=== PATIENT | female | born 1980 | race Caucasian/White ===

== ENCOUNTER 2017-04-21 15:41 | Emergency (ER) | payer OTHER ==
[2017-04-21 15:52] VITALS: TEMP 98.2; BMI 33.8
--- NOTE | 2017-04-21 17:50 | PDOC ---
History of Present Illness - General History Source: Patient Exam Limitations: No Limitations <Christel Glassapolinar - Last Filed: 04/21/17 18:12> <Jakob Bush - Last Filed: 04/22/17 00:25> - General Chief Complaint: Chest Pain Stated Complaint: CHEST PAIN Time Seen by Provider: 04/21/17 17:38 - History of Present Illness Initial Comments: 04/21/17 18:11 The patient is a 36 year old female, with no significant past medical history, who presents to the emergency department complaining of chest pain since approximately 12:30. The patient reports her chest pain is intermittent and occasionally sharp in nature. Currently, the patient reports the pain is dull and rates it a 5/10. The patient reports the pain is exacerbated with with movement of her left arm. She reports some numbness in her right arm earlier today, and numbness in her right thigh intermittently during the past month. The patient denies any associated shortness of breath, diaphoresis, palpitations , tingling, lower extremity edema or pain. She denies any abdominal pain, nausea , vomiting, diarrhea, or constipation. She denies any fever, chills, cough, or dizziness. Patient reports her last menstrual period was on 04/12/17. She denies any recent travel or sick contacts. Allergies: NKDA Past Surgical History: None reported Family History: No family history of heart disease. Social History: Non smoker. No ETOH or drug use. (Js Glass) Past History <Js Glass - Last Filed: 04/21/17 18:12> - Past Medical History Asthma: No Cancer: No Cardiac Disorders: No Diabetes: No HTN: No Seizures: No Thyroid Disease: No - Psycho/Social/Smoking Cessation Hx Suicidal Ideation: No Smoking History: Never smoked Have you smoked in the past 12 months: No Hx Alcohol Use: No Drug/Substance Use Hx: No Substance Use Type: None Hx Substance Use Treatment: No <Jakob Bush - Last Filed: 04/22/17 00:25> - Past Medical History Allergies/Adverse Reactions: Allergies Allergy/AdvReac Type Severity Reaction Status Date / Time No Known Allergies Allergy Verified 04/21/17 17:50 Home Medications: Ambulatory Orders NK [No Known Home Medication] 04/21/17 Review of Systems - Review of Systems Able to Perform ROS?: Yes <GlassJs lucas - Last Filed: 04/21/17 18:12> <Jakob Bush - Last Filed: 04/22/17 00:25> - Review of Systems Comments:: 04/21/17 18:11 CONSTITUTIONAL: No fever, no chills, no fatigue EYES: No visual changes ENT: No ear pain, no sore throat CARDIOVASCULAR: Yes: +chest pain. No diaphoresis, no palpitations RESPIRATORY: No cough, no SOB GI: No abdominal pain, no nausea, no vomiting, no constipation, no diarrhea GENITOURINARY: No dysuria, no frequency, no hematuria MUSKULOSKELETAL: No backpain, no joint pain, no myalgias SKIN: No rash NEURO: No headache (Js Glass) *Physical Exam <Js Glass - Last Filed: 04/21/17 18:12> <Jakob Bush - Last Filed: 04/22/17 00:25> - Vital Signs Last Vital Signs Temp Pulse Resp BP Pulse Ox 98.2 F 64 20 138/70 99 04/21/17 15:50 04/21/17 15:50 04/21/17 15:50 04/21/17 15:50 04/21/17 15:50 - Physical Exam Comments: 04/21/17 18:11 CONSTITUTIONAL: Well-appearing; well-nourished; in no apparent distress HEAD: Normocephalic; atraumatic EYES: PERRL; EOM intact ENMT: External appears normal; normal oropharynx NECK: Supple; non-tender; no cervical lymphadenopathy CARD: Normal S1, S2; no murmurs, rubs, or gallops RESP: Normal chest excursion with respiration; breath sounds clear and equal bilaterally; no wheezes, rhonchi, or rales ABD: Soft, non-distended; non-tender; no palpable organomegaly, no palpable hernias EXT: Normal ROM in all four extremities; non-tender to palpation; distal pulses intact SKIN: Warm, dry, no rash NEURO: No focal neurological deficiencies. (Js Glass) ED Treatment Course - LABORATORY CBC & Chemistry Diagram: 04/21/17 18:37 04/21/17 18:37 <Jakob Bush Last Filed: 04/22/17 00:25> - ADDITIONAL ORDERS Additional order review: Laboratory Results 04/21/17 04/21/17 04/21/17 22:50 18:37 18:37 INR Sodium 138 Potassium 3.9 Chloride 105 Carbon Dioxide 23 Anion Gap 10 BUN 9 Creatinine 0.5 L D Creat Clearance w eGFR > 60 Random Glucose 91 Calcium 8.6 Magnesium 2.0 Total Bilirubin 0.3 AST 37 ALT 78 Alkaline Phosphatase 109 Creatine Kinase 118 118 Troponin I < 0.02 < 0.02 Total Protein 7.7 Albumin 3.7 Urine HCG, Qual 04/21/17 04/21/17 18:37 17:49 INR 1.02 Sodium Potassium Chloride Carbon Dioxide Anion Gap BUN Creatinine Creat Clearance w eGFR Random Glucose Calcium Magnesium Total Bilirubin AST ALT Alkaline Phosphatase Creatine Kinase Troponin I Total Protein Albumin Urine HCG, Qual Negative 04/21/17 18:37 RBC 4.48 D MCV 82.6 MCHC 33.9 RDW 13.3 D MPV 8.4 Neutrophils % 61.8 Lymphocytes % 29.5 Monocytes % 6.0 Eosinophils % 1.3 Basophils % 1.4 - RADIOLOGY Radiology Studies Ordered: Category Date Time Status CHEST PA & LAT [RAD] Stat Radiology 04/21/17 18:06 Completed - Medications Given in the ED: ED Medications Discontinued Medications Generic Name Dose Route Start Last Admin Trade Name Freq PRN Reason Stop Dose Admin Ketorolac Tromethamine 30 mg 04/21/17 18:07 04/21/17 18:45 Toradol Injection - IVPUSH 04/21/17 18:08 30 mg ONCE ONE Administration Medical Decision Making <Js Glass - Last Filed: 04/21/17 18:12> <Jakob Bush - Last Filed: 04/22/17 00:25> - Medical Decision Making 04/21/17 18:12 Plan: Bloodwork, CXR. (Js Glass) 04/22/17 00:23 Patient is a well-appearing 36-year-old female who presents to the ER with atraumatic, nonpleuritic left-sided chest discomfort. In the ER, patient is awake and alert, hemodynamically stable in no distress. EKG reveals no evidence of acute ischemia, normal sinus rhythm is noted with a heart rate of 73. Chest x -ray reveals no evidence of cardiomegaly/infiltrate or effusion. Serial cardiac enzymes is within normal limit. Patient is negative for all PERC Criteria RUSTIC TERRAZZO SETTER is highly unlikely. I do not believe the patient's symptoms are cardiac in nature. She has no history of coronary artery disease, no history of familial early coronary artery disease or early cardiac . Will discharge with outpatient follow-up. (Jakob Bush) *DC/Admit/Observation/Transfer <Js Glass - Last Filed: 04/21/17 18:12> <Jakob Bush - Last Filed: 04/22/17 00:25> Diagnosis at time of Disposition: Chest pain Qualifiers: Chest pain type: unspecified Qualified Code(s): R07.9 - Chest pain, unspecified - Discharge Dispostion Disposition: HOME Condition at time of disposition: Stable - Referrals Referrals: [facility] [Provider Group] - Patient Instructions Printed Discharge Instructions: DI for Atypical Chest Pain Print Language: YI - Attestations Scribe Attestion: 04/21/17 18:11 Documentation prepared by Js Galss, acting as medical management specialist for Jakob Bush MD. (Js Glass) Physician Attestion: 04/22/17 00:22 The documentation was prepared by the scribe under my direct supervision. I have reviewed the documentation which correctly represents the findings, medical decision-making and critical action taken by me. (Jakob Bush)
[2017-04-21] MEDS ORDERED: KETOROLAC TROMETHAMINE 30 MG/1 ML VIAL IVPUSH ONE (18:07)
[2017-04-21] MEDS ORDERED: KETOROLAC TROMETHAMINE 30 MG/1 ML VIAL ONE (18:40)
[2017-04-21 18:48] LABS: BASOPHIL 1.4 % (0-2.0); EOSINOPHIL 1.3 % (0-4.5); MCHC 33.9 g/dl (32.0-36.0); MEAN CELL VOLUME 82.6 fl (80-96); MEAN PLT VOLUME 8.4 fl (7.5-11.1); NEUTROPHILS 61.8 % (42.8-82.8); PLATELET COUNT 335 K/MM3 (134-434); RDW 13.3 % (11.6-15.6); WHITE BLOOD COUNT 11.6 K/mm3 (4.0-10.0)
[2017-04-21 18:58] LABS: INR 1.02 (0.82-1.09); PROTHROMBIN TIME (PATIENT) 11.2 SEC (9.98-11.88)
[2017-04-21 19:23] LABS: ALBUMIN 3.7 g/dl (3.4-5.0); ANION GAP 10 (8-16); BILIRUBIN,TOTAL 0.3 mg/dL (0.2-1.0); CALCIUM 8.6 mg/dL (8.5-10.1); CO2 23 mmol/L (21-32); CREATININE 0.5 mg/dL (0.55-1.02); GLUCOSE,RANDOM 91 mg/dL (74-106); SGOT/AST 37 U/L (15-37); SGPT/ALT 78 U/L (12-78); TOT PROT 7.7 g/dl (6.4-8.2)
[2017-04-21 19:25] LABS: ALK PHOS 109 U/L (45-117); CPK 118 IU/L (26-192); TROPONIN I < 0.02 ng/ml (0.00-0.05)
[2017-04-21 23:39] LABS: CPK 118 IU/L (26-192); TROPONIN I < 0.02 ng/ml (0.00-0.05)
[2017-04-22 00:41] VITALS: BP 131/72; PULSE 62
--- NOTE | 2017-04-22 10:53 | EKG ---
Test Reason : Blood Pressure : / mmHG Vent. Rate : 073 BPM Atrial Rate : 073 BPM P-R Int : 146 ms QRS Dur : 088 ms QT Int : 378 ms P-R-T Axes : 039 004 042 degrees QTc Int : 416 ms NORMAL SINUS RHYTHM NORMAL ECG NO PREVIOUS ECGS AVAILABLE Confirmed by MARIA TERESA JACOBS MD ([id number]) on 04/22/2017 10:52:58 AM Referred By: Confirmed By:MARIA TERESA JACOBS MD
== END 2017-04-22 00:40 | disposition home or self-care (01) ==
LOC: JER 15:41
PROC: 3E0333Z Introduction of Anti-inflammatory into Peripheral Vein, Percutaneous Approach (ICD-10-PCS; principal; 2017-04-21)
DX: R07.9 Chest pain, unspecified (principal)
CPT/HCPCS: 36415; 71020-TC; 80053; 83735; 84484; 84703; 85025; 85610; 93005; 93010; 99284-25

== ENCOUNTER 2017-09-04 11:02 | Emergency (ER) | payer OTHER ==
[2017-09-04 11:16] VITALS: BP 164/80; PULSE 70; TEMP 98.5; BMI 34.7
[2017-09-04] MEDS ORDERED: KETOROLAC TROMETHAMINE 60 MG/2 ML VIAL IM ONE (11:45)
--- NOTE | 2017-09-04 11:50 | PDOC ---
History of Present Illness - General Chief Complaint: Back Pain Stated Complaint: BACK PAIN Time Seen by Provider: 09/04/17 11:21 - History of Present Illness Initial Comments: 09/04/17 11:43 CHIEF COMPLAINT: back pain HISTORY OF PRESENT ILLNESS: 36 yo F with no significant PMH presents to fast track with pain to lower back and R leg x 5 days. Patient reports that she has had this pain on and off for 2 years, but this episode began 5-6 days ago and got worse today. PAST MEDICAL HISTORY: Denies past medical history FAMILY HISTORY: Denies SOCIAL HISTORY: Denies tobacco, alcohol, illicit drug use. SURGICAL HISTORY: Denies ALLERGIES: No known drug allergies REVIEW OF SYSTEMS General/Constitutional: Denies fever or chills. Denies weakness, weight change. HEENT: Denies change in vision. Denies ear pain or discharge. Denies sore throat. Cardiovascular: Denies chest pain or shortness of breath. Respiratory: Denies cough, wheezing, or hemoptysis. Gastrointestinal: Denies nausea, vomiting, diarrhea or constipation. Denies rectal bleeding. Genitourinary: Denies dysuria, frequency, or change in urination. Musculoskeletal: Low back pain radiating to R leg. Skin and breasts: Denies rash or easy bruising. Neurologic: Denies headache, vertigo, loss of consciousness, or loss of sensation. PHYSICAL EXAM General Appearance: Well-appearing, appropriately dressed. No apparent distress. HEENT: EOMI, PERRLA. No conjunctival pallor. No photophobia, scleral icterus. Respiratory/Chest: Lungs CTAB. Cardiovascular: RRR. S1, S2. Vascular Pulses: Dorsalis-Pedis (R): 2+, Dorsalis-Pedis (L): 2+ Gastrointestinal/Abdominal: Normal bowel sounds. Abdomen soft, non-distended. No tenderness or rebound tenderness. No organomegaly, pulsatile mass, guarding , hernia, hepatomegaly, splenomegaly. Musculoskeletal/Extremities: Tenderness to paravertebral muscles to lumbar spine. +Straight leg test. Normal inspection. FROM of all extremities, normal capillary refill. Pelvis Stable. No CVA tenderness. No tenderness to extremities, pedal edema, swelling, erythema or deformity. Integumentary: Appropriate color, dry, warm. No cyanosis, erythema, jaundice or rash Neurologic: commercial credit head II-XII intact. Fully oriented, alert. Appropriate mood/affect. Motor strength 5/5. No appreciable EOM palsy, facial droop or sensory deficit. 09/04/17 11:45 Past History - Past Medical History Allergies/Adverse Reactions: Allergies Allergy/AdvReac Type Severity Reaction Status Date / Time No Known Allergies Allergy Verified 09/04/17 11:16 Home Medications: Ambulatory Orders Cyclobenzaprine HCl 7.5 mg PO HS PRN #7 tablet 09/04/17 Diclofenac Sodium 75 mg PO BID #14 tablet. 09/04/17 Asthma: No Cancer: No Cardiac Disorders: No COPD: No Diabetes: No HTN: No Seizures: No Thyroid Disease: No - Suicide/Smoking/Psychosocial Hx Smoking History: Never smoked Have you smoked in the past 12 months: No Hx Alcohol Use: No Drug/Substance Use Hx: No Substance Use Type: None Hx Substance Use Treatment: No *Physical Exam - Vital Signs Last Vital Signs Temp Pulse Resp BP Pulse Ox 98.5 F 70 18 164/80 99 09/04/17 11:13 09/04/17 11:13 09/04/17 11:13 09/04/17 11:13 09/04/17 11:13 ED Treatment Course - ADDITIONAL ORDERS Additional order review: Laboratory Results 09/04/17 11:30 Urine HCG, Qual Negative Medical Decision Making - Medical Decision Making 09/04/17 11:50 36 yo F with no significant PMH presents to fast track with pain to lower back and R leg x 5 days. -urine -Toradol IM cyclobenzaprine and diclofenac rx sent to pharm Advised patient to take medication as prescribed and follow up with orthopedics. Advised patient of signs and symptoms for return to ED. Patient verbalized understanding and agrees to plan. *DC/Admit/Observation/Transfer Diagnosis at time of Disposition: Back pain Qualifiers: Back pain location: low back pain Chronicity: acute Back pain laterality: right Sciatica presence: with sciatica Sciatica laterality: sciatica of right side Qualified Code(s): M54.41 - Lumbago with sciatica, right side - Discharge Dispostion Disposition: HOME Condition at time of disposition: Stable Admit: No - Prescriptions Prescriptions: Cyclobenzaprine HCl 7.5 mg PO HS PRN #7 tablet PRN Reason: Back Pain Diclofenac Sodium 75 mg PO BID #14 tablet.dr - Referrals Referrals: Ivan Petit MD [Staff Physician] - - Patient Instructions Printed Discharge Instructions: DI for Low Back Pain Additional Instructions: Please take medication as prescribed - do NOT drive, operate machinery, or drink alcohol while taking cyclobenzaprine. As discussed, if your symptoms do not improve in 5-7 days, please follow up with an orthopedics for further evaluation and a possible MRI or physical therapy. If you experience any loss of sensation to your extremities, any loss of bowel or bladder function, any swelling or increased pain to your leg, please return to the ER. Petrolia los medicamentos segn lo recetado - NO maneje, opere maquinaria o anabel alcohol mientras cj cyclobenzaprine. Lawley se discuti, si radha sntomas no mejoran en 5-7 linn, realice un seguimiento con xenia ortopedia para xenia evaluaci n adicional y xenia posible MRI o terapia fsica. Si experimenta prdida de sensibilidad en las extremidades, prdida del funcionamiento del intestino o de la vejiga, hinchazn o aumento del dolor en la pierna, vuelva a la melissa de emergencias. Print Language: [place] - Post Discharge Activity
[2017-09-04] MEDS ORDERED: KETOROLAC TROMETHAMINE 60 MG/2 ML VIAL ONE (11:59)
== END 2017-09-04 12:07 | disposition home or self-care (01) ==
LOC: JERFT 11:02
PROC: 3E0233Z Introduction of Anti-inflammatory into Muscle, Percutaneous Approach (ICD-10-PCS; principal; 2017-09-04)
DX: M54.41 Lumbago with sciatica, right side (principal)
CPT/HCPCS: 84703; 96372; 99281-25

== ENCOUNTER 2018-07-15 03:44 | Emergency (ER) | payer OTHER ==
[2018-07-15 03:47] VITALS: BMI 34.7
[2018-07-15] MEDS ORDERED: SODIUM CHLORIDE 1,000 ML IV STA (03:50)
--- NOTE | 2018-07-15 04:01 | PDOC ---
History of Present Illness - General Chief Complaint: Pain, Acute Stated Complaint: ABD PAIN Time Seen by Provider: 07/15/18 03:47 History Source: Patient, Family, Ethnology Professor Used Exam Limitations: Language Barrier - History of Present Illness Initial Comments: 07/15/18 03:57 Pt is a 37yo f with no significant PMH presenting to ED with complaints of hematuria, lower abdominal pain 10/10 that started last night. Pt says she has been having dysuria, frequency and pain radiating to the flanks when she urinates. She had a UTI 5 months ago with pain in her abdomen but did not have hematuria and pt says pain is worse today. She denies fevers, chills, n/v/d, headache, numbness, tingling. LMP was one month ago. She says there is blood on the tissue when she wipes. No vaginal bleeding, no blood in stools. Last BM yesterday morning. PMD: [address] PMH: none PSH: Meds: none Social: denies Allergies: nkda Past History - Past Medical History Allergies/Adverse Reactions: Allergies Allergy/AdvReac Type Severity Reaction Status Date / Time No Known Allergies Allergy Verified 07/15/18 03:46 Home Medications: Ambulatory Orders Cyclobenzaprine HCl 7.5 mg PO HS PRN #7 tablet 09/04/17 Diclofenac Sodium 75 mg PO BID #14 tablet. 09/04/17 Cephalexin Monohydrate [Keflex -] 500 mg PO Q8H #42 capsule 07/15/18 Asthma: No Cancer: No Cardiac Disorders: No COPD: No Diabetes: No HTN: No Seizures: No Thyroid Disease: No - Suicide/Smoking/Psychosocial Hx Smoking History: Never smoked Have you smoked in the past 12 months: No Information on smoking cessation initiated: No Hx Alcohol Use: No Drug/Substance Use Hx: No Substance Use Type: None Hx Substance Use Treatment: No Review of Systems - Review of Systems Constitutional: No: Chills, Fever HEENTM: No: Symptoms Reported Respiratory: No: Cough, Shortness of Breath Cardiac (ROS): No: Chest Pain, Lightheadedness, Palpitations ABD/GI: Yes: See HPI, Constipated, Abdominal cramping (lower abdominal pain). No: Diarrhea, Nausea, Vomiting : Yes: Dysuria, Frequency, Flank Pain (with urination), Hematuria, Urgency. No: Discharge, Incontinence Musculoskeletal: No: Back Pain, Joint Pain, Muscle Weakness Integumentary: No: Symptoms Reported Neurological: No: Headache, Numbness, Tingling *Physical Exam - Vital Signs Last Vital Signs Temp Pulse Resp BP Pulse Ox 98.5 F 75 18 129/63 98 07/15/18 03:46 07/15/18 03:46 07/15/18 03:46 07/15/18 03:46 07/15/18 03:46 - Physical Exam General Appearance: Yes: Nourished, Appropriately Dressed, Moderate Distress HEENT: positive: EOMI, CASEY. negative: Pale Conjunctivae, Scleral Icterus (R), Scleral Icterus (L), Pharyngeal Erythema Neck: positive: Trachea midline, Supple. negative: Lymphadenopathy (R), Lymphadenopathy (L) Respiratory/Chest: positive: Lungs Clear, Normal Breath Sounds. negative: Crackles, Rales, Rhonchi, Stridor Cardiovascular: positive: Regular Rhythm, Regular Rate, S1, S2. negative: Edema , JVD, Murmur Vascular Pulses: Carotid (R): 2+, Carotid (L): 2+, Dorsalis-Pedis (R): 2+, Doralis-Pedis (L): 2+ Gastrointestinal/Abdominal: positive: Normal Bowel Sounds, Soft, Tenderness ( lower abdomninal tenderness). negative: Protuberent, Distended, Guarding, Rebound, Hernia, Mass Musculoskeletal: negative: CVA Tenderness (R), CVA Tenderness (L) Extremity: positive: Normal Capillary Refill, Pelvis Stable. 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 pain in flank with urination Vitals: wnl. No fever, normotensive, not tachycardic. PE: Ddx includes but not limited to: pyelonephritis, nephrolithiasis, hemorrhagic cystitis, fistula, urosepsis, malignancy, rhabdo low suspicion for urosepsis given pt having normal vital signs and no fever. UA, Ucx, upreg, cbc, cmp ordered. Pt given Toradol and iv fluids. -pt reported pain going from 10/10 to 5/10 after toradol. Pt presenting with painful hematuria. bedside ultrasound did not show evidence of hydronephrosis bladder wall seemed thickened. Pt reports bilateral flank pain with urination which lowers suspicion for nephrolithiasis however still a possibility. Will order spiral CT to check for perinephric stranding, stones and other abdominal pathology or bladder pathology. 07/15/18 04:53 Pertinent labs: Laboratory Tests 07/15/18 07/15/18 04:32 04:32 WBC 15.2 H Hgb 13.0 Hct 39.1 Plt Count 363 Absolute Neuts (auto) 10.0 H Urine Color Red Urine Protein 2+ H Urine Blood 3+ H Ur Leukocyte Esterase 2+ H 07/15/18 04:57 negative upreg. Will send pt to CT. 07/15/18 05:23 other than slightly elevated LFT, cmp wnl. Laboratory Tests 07/15/18 04:32 AST 82 H ALT 142 H 07/15/18 05:42 Laboratory Tests 07/15/18 04:32 Urine WBC (Auto) 938 Urine RBC (Auto) 291 Urine Bacteria 1+ Pt has wbc with 1+ bacteria. Will start patient on ceftriaxone here in ED. Pt may have hemorrhagic cystitis with early pyelo. Pt is otherwise tolerating PO, afebrile, normotensive, no signs of systemic infection. Will be likely dc home with keflex TID x 14d. Dependent on CT reading. 07/15/18 05:55 CT: No nephrolithiasis, ureterolithiasis or obstructive uropathy. No bladder calculi. Unremarkable pancreas and gallbladder. Hepatomegaly and steatosis. No bowel obstruction, colitis, diverticulitis or free air. Normal appendix. Small umbilical hernia containing fat. IUD in uterus. Trace physiologic free fluid cul-de-sac Pt reports improvement of pain, will get abx here and be treated for today, and will receive abx at pharmacy. rx sent electronically. abx can be tailored based on sensitivities by ucx. Pt agrees to plan. Will follow up at [address] [place] [address]. Given strict return precautions. *DC/Admit/Observation/Transfer Diagnosis at time of Disposition: Hemorrhagic cystitis - Discharge Dispostion Disposition: HOME Condition at time of disposition: Good Decision to Admit order: No - Prescriptions Prescriptions: Cephalexin Monohydrate [Keflex -] 500 mg PO Q8H #42 capsule - Referrals - Patient Instructions Printed Discharge Instructions: DI for Hemorrhagic Cystitis Additional Instructions: Fue consultado hoy aqu para evaluar la presencia de radha en la orina ( hematuria) y dolor. El examen de orina muestra que usted tiene xenia infeccin en la orina. La tomografa computarizada no muestra clculos o signos de infeccin renal en eric momento. Tiene cistitis hemorrgica, xenia infeccin de la vejiga. Le taylor recetado un antibitico llamado Keflex (cefalexina) para que lo tome amaris veces al da cameron 14 linn. Por favor recoja esto en queen farmacia y tome los medicamentos devorah se indica a partir de maana. No tome eric medicamento si desarrolla xenia erupcin o inflamacin en la radha. Por favor jacki xenia iker con queen mdico para xenia mayor evaluacin y manejo de radha sntomas. Puede kem ibuprofeno o Tylenol para el dolor segn sea necesario. Regrese a la melissa de emergencias si el dolor empeora, todava tiene dolor al orinar, todava tiene radha en la orina despus de unos linn, tiene fiebre, empeora el dolor de espalda, si tiene vmitos o si hay algn sntoma nuevo relacionado con l. se desarrolla Ronnie You were seen here today for evaluation of blood in the urine (hematuria) and pain. The urine test shows that you have an infection in the urine. CT scan does not show any stones or signs of kidney infection at this time. You have hemorrhagic cystitis, an infection of the bladder. You have been prescribed an antibiotic called Keflex (cephalexin) for you to take three times a day for 14 days. Please pick this up at your pharmacy and take the medication as directed starting tomorrow. Do not take this medicine if you develop a rash or swelling in the face. Please make an appointment with your doctor for further evaluation and management of your symptoms. You can take ibuprofen or Tylenol for pain as needed. Come back to the emergency room if pain gets worse, you still have pain with urination, you still have blood in the urine after a few days, you develop fever , you have worsening back pain, if you have vomiting or if any new concerning symptom develops. Thank you Print Language: [place]ICAN CITIZEN - Post Discharge Activity
[2018-07-15] MEDS ORDERED: KETOROLAC TROMETHAMINE 30 MG/1 ML VIAL IM ONE (04:07)
[2018-07-15] MEDS ORDERED: KETOROLAC TROMETHAMINE 30 MG/1 ML VIAL ONE (04:14)
--- NOTE | 2018-07-15 04:17 | PDOC ---
Attending Attestation - Resident Resident Name: Sa Leahira - ED Attending Attestation I have performed the following: I have examined & evaluated the patient, The case was reviewed & discussed with the resident, I agree w/resident's findings & plan - HPI HPI: 07/15/18 04:54 Bain 37 YOF with no medical history presenting with lower AP and hematuria tonight, radiating to flanks. Feels similar to prior UTI. associated with dysuria. LMP 1 month ago. No f/c, vomiting/diarrhea, cp or sob. No vb. 07/15/18 04:55 - Physicial Exam PE: 07/15/18 04:54 NAD, well appearing, PERRL, EOMI, MMM, nl conjunctiva, anicteric; neck supple. lungs clear, RRR, abdomen soft bilateral lower quad tenderness, no peritoneal signs. No flank tenderness or CVAT. BRISENO x4, no focal neuro deficits. No peripheral edema. normal color for ethnicity, WWP. - Medical Decision Making 07/15/18 04:56 DDx. hemorrhagic cystitis, pyelonephritis, renal colic, obstructed ureterolithiasis. Intra abdominal infection. electrolyte/metabolic derangements , PATRICK. Vital signs reviewed, wnl. no fever, nontoxic appearing Prior notes reviewed, including admissions, discharges and consultations. laboratory results and imaging reviewed, basic labs and lytes wnl, notable for + leukocytosis of 15K. UA_leuk esterase and copious WBC/RBCs. ED course; analgesia with toradol, down to 5/10. IVF, antiemetics. bedside renal sono with no hydronephrosis bilaterally, no pelvic FF. will do CT talha to eval for alternative intra abdominal precipitant for infection, no e/o hydro so less likely large obstructing stone. also looking for alternative etiology such as early pyelo and hemorrhagic cystitis. CT neg for hydro/stones, no abdominal pathology, unremarkable study, normal appx treat as hemorrhagic cystitis, possible early pyelo w/o significant sx or systemic findings. IV ceftriaxone, PO keflex xx 2 week course. f/u urine cultures. Dispo: I discussed the physical exam findings, ancillary test results and final diagnoses with the patient. I answered all of the patient's questions. The patient was satisfied with the care received and felt comfortable with the discharge plan and treatment plan. The patient will return to the Emergency Department with any new, persistent or worsening symptoms. 07/15/18 06:03
[2018-07-15 04:44] LABS: BASO % 1.2 % (0-2.0); EOS % 1.2 % (0-4.5); HEMATOCRIT 39.1 % (32.4-45.2); LYMPH % 26.7 % (8-40); MCH 27.7 pg (25.7-33.7); MCHC 33.2 g/dl (32.0-36.0); MEAN CELL VOLUME 83.5 fl (80-96); MEAN PLT VOLUME 9.1 fl (7.5-11.1); MONO % 4.9 % (3.8-10.2); PLATELET COUNT 363 K/MM3 (134-434); RBC 4.68 M/mm3 (3.60-5.2); RDW 13.3 % (11.6-15.6); WHITE BLOOD COUNT 15.2 K/mm3 (4.0-10.0)
[2018-07-15 04:45] LABS: URINE APPEARANCE SLCLOUDY; URINE BILIRUBIN NEGATIVE (<2.0 mg/dL); URINE COLOR RED; URINE GLUCOSE (UA) NEGATIVE (NEGATIVE); URINE KETONE NEGATIVE (NEGATIVE); URINE LEUK ESTERASE 2+ (NEGATIVE); URINE NITRITE NEGATIVE (NEGATIVE); URINE PROTEIN 2+ (NEGATIVE); URINE UROBILINOGEN NEGATIVE mg/dL (0.2-1.0)
[2018-07-15 05:12] LABS: ALBUMIN 3.8 g/dl (3.4-5.0); ALK PHOS 116 U/L (45-117); ANION GAP 10 MMOL/L (8-16); BILIRUBIN,TOTAL 0.4 mg/dL (0.2-1); BLOOD UREA NITROGEN 14 mg/dL (7-18); CALCIUM 8.8 mg/dL (8.5-10.1); CHLORIDE 105 mmol/L (98-107); CO2 23 mmol/L (21-32); CREATININE 0.7 mg/dL (0.55-1.3); GLUCOSE,RANDOM 93 mg/dL (74-106); POTASSIUM 4.4 mmol/L (3.5-5.1); SGOT/AST 82 U/L (15-37); SGPT/ALT 142 U/L (13-61); SODIUM 138 mmol/L (136-145); TOT PROT 8.1 g/dl (6.4-8.2)
[2018-07-15 05:15] VITALS: BP 129/61; PULSE 76; TEMP 98.2
[2018-07-15 05:24] LABS: URINE BACTERIA 1+ /hpf (NONE SEEN)
[2018-07-15] MEDS ORDERED: CEFTRIAXONE 1,000 MG in DEXTROSE 5%-WATER - 50 ML IVPB ONE (05:33)
[2018-07-15] MEDS ORDERED: CEFTRIAXONE 1 GM/50 ML BAG ONE (06:37)
== END 2018-07-15 06:33 | disposition home or self-care (01) ==
LOC: JER 03:44
PROC: 3E03329 Introduction of Other Anti-infective into Peripheral Vein, Percutaneous Approach (ICD-10-PCS; principal; 2018-07-15)
PROC: 3E0333Z Introduction of Anti-inflammatory into Peripheral Vein, Percutaneous Approach (ICD-10-PCS; 2018-07-15)
PROC: 3E0337Z Introduction of Electrolytic and Water Balance Substance into Peripheral Vein, Percutaneous Approach (ICD-10-PCS; 2018-07-15)
DX: N30.81 Other cystitis with hematuria (principal)
CPT/HCPCS: 36415; 74176; 80053; 81003; 81015; 84703; 85025; 87086; 87186; 96361; 96365; 96372; 99283-25; J7030

== ENCOUNTER 2023-02-17 12:10 | Emergency (ER) | payer OTHER ==
[2023-02-17 12:20] VITALS: TEMP 98.2; BMI 34.0
[2023-02-17] MEDS ORDERED: KETOROLAC TROMETHAMINE 60 MG/2 ML VIAL IM ONE (13:08)
[2023-02-17] MEDS ORDERED: KETOROLAC TROMETHAMINE 60 MG/2 ML VIAL ONE (13:18)
[2023-02-17 13:53] LABS: EPI CELLS 6 /uL (0-25.1); HYALINE CASTS 0 /uL (0-3.1); PH,URINE 6.5 (5.0-8.0); URINE APPEARANCE CLEAR; URINE BACTERIA 42 /uL (0-1359); URINE BILIRUBIN NEGATIVE (NEGATIVE); URINE COLOR YELLOW; URINE GLUCOSE (UA) NEGATIVE (NEGATIVE); URINE KETONE NEGATIVE (NEGATIVE); URINE LEUK ESTERASE NEGATIVE (NEGATIVE); URINE NITRITE NEGATIVE (NEGATIVE); URINE PROTEIN NEGATIVE (NEGATIVE); URINE RBC 53 /uL (0-23.9); URINE WBC 5 /uL (0-25.8)
[2023-02-17] MEDS ORDERED: LORazepam 2 MG/ML SDV VIAL IM ONE (15:00)
[2023-02-17 15:12] VITALS: BP 132/85; PULSE 58; RESP 17
== END 2023-02-17 18:11 | disposition home or self-care (01) ==
LOC: JERFT 12:10
PROC: 3E0233Z Introduction of Anti-inflammatory into Muscle, Percutaneous Approach (ICD-10-PCS; principal; 2023-02-17)
PROC: 3E023NZ Introduction of Analgesics, Hypnotics, Sedatives into Muscle, Percutaneous Approach (ICD-10-PCS; 2023-02-17)
DX: M54.50 Low back pain, unspecified (principal)
CPT/HCPCS: 72100-TC-FY; 74176-TC; 81003; 84703; 99285-25